=== PATIENT | female | born 1995 | race Caucasian/White ===

== ENCOUNTER 2021-09-14 08:00 | Outpatient (CLI) | payer MEDICAID ==
[2021-09-16 18:59] LABS: CHLAMYDIA TRACHOMATIS DNA NEGATIVE (NEGATIVE); NEISSERIA GONORRHOEAE DNA NEGATIVE (NEGATIVE); TRICHOMONAS VAGINALIS DNA NEGATIVE (NEGATIVE)
== END 2021-09-14 23:59 ==
LOC: LAB.WC 08:00
PROVIDERS: ATTEND Obstetrics & Gynecology
DX: Z11.3 Encounter for screening for infections with a predominantly sexual mode of transmission (principal)
CPT/HCPCS: 87491; 87591; 87661

== ENCOUNTER 2021-09-14 12:48 | Outpatient (CLI) | payer MEDICAID | END 2021-09-14 12:49 | disposition home or self-care (01) | LOC: LAB.N 12:48 | PROVIDERS: ATTEND Obstetrics & Gynecology | DX: O03.9 Complete or unspecified spontaneous abortion without complication (principal) | CPT/HCPCS: 36415; 84702; 86900; 86901 ==

== ENCOUNTER 2022-03-12 09:12 | Outpatient (CLI) | payer MEDICAID ==
--- NOTE | 2022-03-12 14:32 | Ultrasound Report ---
PROCEDURE: OB First Trimester INDICATIONS: supervision of OUTSIDE/PRIOR DATING DATA: Last menstrual period (LMP): 12/13/2021. LMP-based estimated date of delivery (WILLIAM): 09/19/2022. First dating scan (date and location): 03/12/2022 at [facility]. Estimated date of delivery (WILLIAM) from first dating scan: 09/19/2022. The below data below was generated using the ultrasound WILLIAM of 09/19/2022 TECHNIQUE: Real-time scanning was performed of the fetus and maternal pelvic organs, with image documentation. COMPARISON: None. FINDINGS: There is an intrauterine gestational sac. A pole is identified. The estimated gestat ional age is 12 weeks 5 days. cardiac activity is present with heart rate 155 BPM. Measurement variability in dating: +/- 4 weeks by LMP, +/- 7 days by mean sac diameter (use before 6 weeks gestation if crown-rump length not able to be measured), +/- 5 days by crown-rump length (6-12 weeks gestation). Maternal organs: Cervix is closed. Ovaries are grossly normal. Note is made of a corpus due to cyst in the right ovary measuring 2.7 x 1.4 x 1.5 cm. IMPRESSION: 1. A single living intrauterine gestation with the estimated gestational age 12 weeks 5 days, corresp onding to ultrasound WILLIAM 09/19/2010 22. Ultrasound dating is concordant with clinical dating. 2. A corpus luteal cyst in the right ovary. Reviewed by: Isabel Preston MD on 03/12/2022 2:30 PM PDT Approved by: Isabel Preston MD on 03/12/2022 2:30 PM PDT Station ID: [id number]
== END 2022-03-12 09:13 | disposition home or self-care (01) ==
LOC: DI 09:12
PROVIDERS: ATTEND Midwife
DX: Z34.81 Encounter for supervision of other normal pregnancy, first trimester (principal)

== ENCOUNTER 2022-05-05 14:42 | Outpatient (CLI) | payer MEDICAID ==
--- NOTE | 2022-05-05 17:13 | Ultrasound Report ---
PROCEDURE: OB Detailed Eval INDICATIONS: SUPERVISION OF NORMAL OUTSIDE/PRIOR DATING DATA: Last menstrual period (LMP): 12/13/2019. LMP-based estimated date of delivery (WILLIAM): 09/19/2022. First dating scan (date and location): 03/12/2022. Estimated date of delivery (WILLIAM) from first dating scan: 09/19/2020. TECHNIQUE: Real-time scanning was performed of the fetus, with image documentation and biometric measurements. COMPARISON: 03/12/2022 FINDINGS: General: A single living intrauterine gestation is present. Presentation: Breech Placenta: Placental position is anterior, without previa. Amniotic fluid index: 14.5 cm, normal for gestational age. heart rate: 141 beats per minute. Maternal cervical canal: 3.9 cm long; normal length is 2.5 cm or more. Adnexa not well seen. biometrics: Biparietal diameter: 4.7 cm Head circumference: 17.7 cm Abdominal circumference: 15.5 cm Femur length: 3.1 centimeters Composite gestational age from present scan: 20 weeks and 0 days Estimated gestational age from initial ultrasound is 20 weeks and 3 days. Estimated weight and percentile: 29 percentile, 334 g Measurement variability in biometric dating: +/- 10 days from 12-20 weeks gestation, +/- 2 weeks from 20-30 weeks gestation, +/- 3 weeks at 30 weeks gestation or later. Anatomic survey: Neuro: Ventricles are normal at less than 10 mm. Cisterna magna is normal at 3-11 mm. Cerebellum i s normal in size and morphology. Nuchal skin fold: Normal at less than 6 mm between 14 and 20 weeks gestational age. Face: Nose and lips, facial profile are normal. Spine: Not well seen. Heart: 4-chambered heart is present, with normal ventricular outflow tracts. Diaphragm: Diaphragm is intact. Stomach: Left-sided stomach is present. Kidneys: No hydronephrosis. Normal is less than 5 mm in 2nd trimester, less than 7 mm in 3rd trimester. Cord: 3 vessel cord has orthotopic insertion. Bladder: Normal in size. Extremities: All 4 extremities are visualized. IMPRESSION: Intrauterine gestation at 20 weeks and 3 days, with concordant biometry today. Estimated weight at the 29th percentile. Spine was not well seen due to position. Follow-up anatomy scan may be obtained in 2-3 weeks. Reviewed by: Mega Marcial MD on 05/05/2022 5:12 PM PDT Approved by: Mega Marcial MD on 05/05/2022 5:12 PM PDT Station ID: [id number]
== END 2022-05-05 14:43 | disposition home or self-care (01) ==
LOC: DI 14:42
PROVIDERS: ATTEND Midwife
DX: Z34.82 Encounter for supervision of other normal pregnancy, second trimester (principal)